=== PATIENT | male | born 1955 | race Caucasian/White ===

== ENCOUNTER 2023-10-05 14:13 | Outpatient (AMB) | payer OTHER, SELFPAY ==
--- NOTE | 2023-10-05 14:46 | A.OFFVIS_ITS ---
Intake Vital Signs 10/05/23 14:51 Height 5 ft 10 in Weight 220 lb BMI 31.6 BP 132/82 Blood Pressure Location Rt brachial Position Sitting Pulse 53 Pulse Source Pulse Oximeter Pulse Oximetry (%) 98 Oxygen Delivery Method Room Air Intake Visit Reasons: ENP-Insomnia/fragmented sleep patern Intake Note: Patient presents for insomnia and fragmented sleep pattern. Allergies No Known Allergies Allergy (Verified 10/05/23 14:53) Medication List - Last Reconciled 10/23/23 by NANCIE Tamez atorvastatin 40 mg PO BEDTIME diltiazem HCl ER mg PO fluoxetine 40 mg PO DAILY metoprolol tartrate 100 mg PO BID pantoprazole 40 mg PO DAILY rivaroxaban (Xarelto) 20 mg PO DAILY HPI HPI Comments History of Present Illness Details 68-yr-old male presents for [facility] patient visit for sleep consultation. Pt states that he has had narcolepsy s/s since childhood- had excessive daytime sleepiness, would miss meals. As he started college, he was started on methylphenidate. Over time, he was switched to [employer] w/ the Xyrem. He did stop the Xyrem d/t thought it was not doing much but at that time was working and more active. The [employer] was stopped working after some years, and he was started on Adderrall. This was stopped once he developed A-fib in 2018- w/ initial s/s of HR > 200. Since, he has had bothersome hypersomnia, which interferes with the daily activities he would like to be able to do. Pt reports has also has a h/o sleep apnea, hypersomnia, and narcolepsy. Per pt, he has had more than one positive MSLT. He does have a CPAP machine- set at 8cmH2O- has not used it in 2 yrs d/t needs new supplies- filters and tubing. Since 2020, pt reports he has been having hypnogenic hallucinations when he is falling asleep and waking up, which are similar to ones that he had as a child of 7-8 yrs old. He has recently woke up waving to someone in his dream or woke up calling his dog's name. Sometimes his right thumb will tremor. Neck can be stiff Denies hyposmia, gait changes, constipation. Current sleep cycle: In the evening, he watches TV, he tries to fall asleep around 1am, he wakes up between 4:30-7am, and then he walks his dog, and then lays back down on the sofa and falls asleep again w/ the TV on. If he has to run errands, he will go shopping in late am/afternoon, then will return home and go back to sleep. He does take 1 alcohol drink per day- would stop if he could resume Xyrem. He denies any cataplexy, drop attacks, sudden weakness w/ strong emotion. [facility] Medical History (Updated 10/23/23 @ 20:43 by NANCIE Tamez) Memory difficulties Surgical History (Updated 10/05/23 @ 14:54 by NATALEE Joseph) History of back surgery Family History (Updated 10/05/23 @ 14:55 by NATALEE Joseph) Father Hyperlipidemia Mother HTN (hypertension) Cancer, colon Social History (Updated 10/05/23 @ 14:55 by NATALEE Joseph) Alcohol intake: current Patient Tobacco Use Status: Never used Tobacco Review of Systems Const All systems reviewed & are unremarkable except as noted in HPI and below Physical Exam Vital Signs: Last Vital Signs Pulse 53 10/05/23 14:51 BP 132/82 10/05/23 14:51 Pulse Ox 98 10/05/23 14:51 Oxygen Delivery Method Room Air 10/05/23 14:51 BMI result Body Mass Index 31.6 Const General: no acute distress Orientation/consciousness: patient oriented x3 Resp Effort & Inspection: able to speak in complete sentences Neuro General: patient oriented x3 Psych Mental Status: mental status grossly normal Speech and movement: Clear speech present Attitude: cooperative Assessment & Plan Assessment & Plan (1) Narcolepsy: Code(s): G47.419 - Narcolepsy without cataplexy (2) Obstructive sleep apnea: Code(s): G47.33 - Obstructive sleep apnea (adult) (pediatric) (3) Hypersomnia: Code(s): G47.10 - Hypersomnia, unspecified Plan Resume CPAP 8 cmH2O. Will refer pt to a local respiratory home care company. Once pt has been on CPAP again x's 1 month, pt advised to undergo in-lab PSG w/ MSLT. Upon review, consider resuming sodium oxybate, however would avoid Xyrem d/t high sodium content, Xywav would be a more favorable option in setting of HLD, HTN, and a-fib dx. Will request any previous sleep studies from [facility]. Pt seen in c/w Dr Robyn Chaidez. Coding Level of Care Code New Pt Level 4 (10105) Diagnoses Narcolepsy G47.419 Obstructive sleep apnea G47.33 Hypersomnia G47.10
[2023-10-05 14:51] VITALS: BP 132/82; PULSE 53; O2SAT 98; BMI 31.6
== END 2023-10-05 15:53 | disposition home or self-care (01) ==
PROVIDERS: Visit Provider Nurse Practitioner Family
DX: G47.419 Narcolepsy without cataplexy (principal); G47.33 Obstructive sleep apnea (adult) (pediatric); G47.10 Hypersomnia, unspecified
CPT/HCPCS: 99204

== ENCOUNTER → 2023-10-05 14:13 | Outpatient (BNVA) | payer OTHER, SELFPAY | PROVIDERS: Visit Provider Nurse Practitioner Family | DX: G47.419 Narcolepsy without cataplexy (principal); G47.33 Obstructive sleep apnea (adult) (pediatric); G47.10 Hypersomnia, unspecified; Z99.89 Dependence on other enabling machines and devices | CPT/HCPCS: 99202 ==

== ENCOUNTER → 2023-12-08 20:00 | Outpatient (REF) | payer OTHER, SELFPAY | LOC: HO.SL 20:00 | PROVIDERS: Visit Provider Nurse Practitioner Family | DX: G47.33 Obstructive sleep apnea (adult) (pediatric) (principal); G47.419 Narcolepsy without cataplexy; G47.10 Hypersomnia, unspecified | CPT/HCPCS: 95805 ==

== ENCOUNTER 2024-03-08 13:50 | Outpatient (AMB) | payer OTHER, SELFPAY ==
--- NOTE | 2024-03-08 14:38 | A.OFFVIS_ITS ---
Vital Signs 03/08/24 14:40 Weight 230 lb 6 oz Intake Visit Reasons: Insomnia/fragmented sleep - Conf Intake Note: Patient presents for follow up. Allergies No Known Allergies Allergy (Verified 03/08/24 14:38) Medication List - Last Reconciled 03/08/24 by NANCIE Tamez atorvastatin 40 mg PO BEDTIME diltiazem HCl ER mg PO fluoxetine 40 mg PO DAILY losartan 25 mg PO DAILY metoprolol tartrate 100 mg PO BID pantoprazole 40 mg PO DAILY rivaroxaban (Xarelto) 20 mg PO DAILY HPI Comments Details: 68-yr-old male presents for f/u visit. Pt denies any significant interval medical changes. Pt underwent in-lab PSG/MSLT, however study showed AHI 6/hr w/ O2 miller 83%. His dog was present during his sleep study and was climbing on him, which may have accounted for sleep fragmentation seen in the study. Since starting PAP tx 3-4 weeks ago, he has been sleeping better through the night. Still needs to void ~3 times a night. He is still sleeping a lot during the day. He has been noticing hallucinations coming out of sleep- thinking it was raining or seeing something. This has been happening even with using his CPAP. [facility] Medical History (Updated 10/23/23 @ 20:43 by NANCIE Tamez) Memory difficulties Surgical History History of back surgery Family History Father Hyperlipidemia Mother HTN (hypertension) Cancer, colon Social History Alcohol intake: current Patient Tobacco Use Status: Never used Tobacco Physical Exam Const General: cooperative and no acute distress Orientation/consciousness: patient oriented x3 Resp Effort & Inspection: normal respiratory effort and able to speak in complete sentences Neuro General: patient oriented x3 Cognition (Neuro): normal cognition Psych Appearance: grossly normal Mental Status: mental status grossly normal Speech and movement: Normal speech and movement present Affect: normal affect Attitude: cooperative Assessment & Plan Assessment & Plan (1) Obstructive sleep apnea: Code(s): G47.33 - Obstructive sleep apnea (adult) (pediatric) Category: Medical (2) Hypersomnia: Code(s): G47.10 - Hypersomnia, unspecified Category: Medical Plan Continue CPAP 8 cmH2O nightly > 4 hrs, as pot is having clinical benefit, though hypersomnia persists. In-lab PSG w/ MSLT, as scheduled. Upon review, consider resuming sodium oxybate, however would avoid Xyrem d/t high sodium content, Xywav would be a more favorable option in setting of HLD, HTN, and a-fib dx. Coding Level of Care Code Est Pt Level 3 (46596) Diagnoses Obstructive sleep apnea G47.33 Hypersomnia G47.10
== END 2024-03-08 15:14 | disposition home or self-care (01) ==
PROVIDERS: Visit Provider Nurse Practitioner Family
DX: G47.33 Obstructive sleep apnea (adult) (pediatric) (principal); G47.10 Hypersomnia, unspecified
CPT/HCPCS: 99213

== ENCOUNTER → 2024-03-08 13:50 | Outpatient (BNVA) | payer OTHER, SELFPAY | PROVIDERS: Visit Provider Nurse Practitioner Family | DX: G47.33 Obstructive sleep apnea (adult) (pediatric) (principal); G47.10 Hypersomnia, unspecified | CPT/HCPCS: 99212 ==

== ENCOUNTER → 2024-03-15 19:30 | Outpatient (REF) | payer OTHER, SELFPAY | LOC: HO.SL 19:30 | PROVIDERS: PCP Internal Medicine; Visit Provider Nurse Practitioner Family | DX: G47.10 Hypersomnia, unspecified (principal); G47.33 Obstructive sleep apnea (adult) (pediatric); G47.419 Narcolepsy without cataplexy | CPT/HCPCS: 95810 ==

== ENCOUNTER → 2024-03-15 21:51 | Outpatient (BNV) | payer OTHER, SELFPAY | PROVIDERS: PCP Internal Medicine; Visit Provider Psychiatry & Neurology Neurology | DX: G47.33 Obstructive sleep apnea (adult) (pediatric) (principal) | CPT/HCPCS: 95810 ==

== ENCOUNTER 2024-03-16 15:56 | Outpatient (REF) | payer OTHER, SELFPAY ==
[2024-03-16 16:50] LABS: Amphetamine Screen Urine Not Detected (Not Detect); Barbiturates, Urine Not Detected (Not Detect); Benzodiazepines Screen Urine Not Detected (Not Detect); Buprenorphine Scr Not Detected (Not Detect); Cannabinoid Screen Urine Not Detected (Not Detect); Cocaine Screen Urine Not Detected (Not Detect); Fentanyl, urine Not Detected (Not Detect); Methadone Screen, Urine Not Detected (Not Detect); Opiate Screen Urine Not Detected (Not Detect); Oxycodone Screen Urine Not Detected (Not Detect); Phencyclidine Screen Urine Not Detected (Not Detect)
== END 2024-03-16 15:57 | disposition home or self-care (01) ==
LOC: HO.LNP 15:56
PROVIDERS: Visit Provider Nurse Practitioner Family
DX: G47.10 Hypersomnia, unspecified (principal); R40.0 Somnolence
CPT/HCPCS: 80307

== ENCOUNTER 2024-05-30 13:27 | Outpatient (AMB) | payer OTHER, SELFPAY ==
--- NOTE | 2024-05-30 14:20 | A.OFFVIS_ITS ---
Vital Signs 05/30/24 14:23 Height 5 ft 10 in Weight 225 lb BMI 32.3 BP 152/90 H Blood Pressure Location Lt brachial Position Sitting Pulse 57 Pulse Source Pulse Oximeter Pulse Oximetry (%) 94 Oxygen Delivery Method Room Air Intake Visit Reasons: f/u to discuss results per [facility] needed sooner appt Multiple Resaw Operator Required: No Accompanied by: Self / Same As Patient Allergies No Known Allergies Allergy (Verified 05/30/24 14:21) Do you need a note to return to daycare/school/sports/work: No HPI Comments Details: 68-yr-old male presents for f/u visit. Pt denies any significant interval medical changes. Pt underwent in-lab PSG/MSLT, however baseline sleep study was a PAP titration study therefore MSLT results were inconclusive. Sleep apnea was controlled on CPAP 13 cmH2O, however residual SpO2 was 88%, PLMS 79/hr w/ PLMS 7.8/hr. Reviewed that recent sleep studies have not shown significant REM sleep. He does have periodic limb movements of sleep. Pt does endorse fragmented sleep, hypersomnia, restless sleep, nocturia, and irregular sleep schedule. Today, pt notes that Xyrem was never very helpful for hypersomnia- the stimulant was more effective. He has been noticing hallucinations coming out of sleep- thinking it was raining or seeing something. This has been happening even with using his CPAP. This did not occur when he was younger. [facility], [facility] Medical History (Updated 05/30/24 @ 15:04 by NANCIE Tamez) Anemia Memory difficulties Surgical History History of back surgery Family History Father Hyperlipidemia Mother HTN (hypertension) Cancer, colon Social History Alcohol intake: current Patient Tobacco Use Status: Never used Tobacco Physical Exam Vital Signs: Last Vital Signs Pulse 57 05/30/24 14:23 BP 152/90 H 05/30/24 14:23 Pulse Ox 94 05/30/24 14:23 Oxygen Delivery Method Room Air 05/30/24 14:23 BMI result Body Mass Index 32.3 Const General: cooperative and no acute distress Orientation/consciousness: patient oriented x3 Resp Effort & Inspection: normal respiratory effort and able to speak in complete sentences Neuro General: patient oriented x3 Cognition (Neuro): normal cognition Psych Appearance: grossly normal Mental Status: mental status grossly normal Speech and movement: Normal speech and movement present Affect: normal affect Attitude: cooperative Assessment & Plan Assessment & Plan (1) Obstructive sleep apnea: Code(s): G47.33 - Obstructive sleep apnea (adult) (pediatric) Category: Medical (2) Hypersomnia: Code(s): G47.10 - Hypersomnia, unspecified Category: Medical (3) Periodic limb movements of sleep: Code(s): G47.61 - Periodic limb movement disorder Category: Medical Plan Discussed that though MSLT not completed, on review of recent sleep study and pt's updated history, I suspect that pt's hypersomnia may have a multi-factorial etiology other than narcolepsy type II (he denies cataplexy). Thus, will check labs for common etiologies of PLMS. Optimize PAP tx settings. Continue Will adjust CPAP settings from CPAP 8 to 14 cmH2O nightly > 4 hrs. Future considerations- trial of gabaoentin. Orders: Orders Ferritin 05/30/24 D64.9 - Anemia, unspecified, E66.9 - Obesity, unspecified, E78.5 - Hyperlipidemia, unspecified, G47.10 - Hypersomnia, unspecified, G47.61 - Periodic limb movement disorder, I10 - Essential (primary) hypertension Methylmalonic Acid 05/30/24 D64.9 - Anemia, unspecified, E66.9 - Obesity, unspecified, E78.5 - Hyperlipidemia, unspecified, G47.10 - Hypersomnia, unspecified, G47.61 - Periodic limb movement disorder, I10 - Essential (primary) hypertension Complete Blood Count Auto Diff 05/30/24 D64.9 - Anemia, unspecified, E66.9 - Obesity, unspecified, E78.5 - Hyperlipidemia, unspecified, G47.10 - Hypersomnia, unspecified, G47.61 - Periodic limb movement disorder, I10 - Essential (primary) hypertension Vitamin D 25-OH (D2 and D3) 05/30/24 D64.9 - Anemia, unspecified, E66.9 - Obesity, unspecified, E78.5 - Hyperlipidemia, unspecified, G47.10 - Hypersomnia, unspecified, G47.61 - Periodic limb movement disorder, I10 - Essential (primary) hypertension Folate 05/30/24 D64.9 - Anemia, unspecified Hemoglobin A1c 05/30/24 D64.9 - Anemia, unspecified, E66.9 - Obesity, unspecified, E78.5 - Hyperlipidemia, unspecified, G47.10 - Hypersomnia, unspecified, G47.61 - Periodic limb movement disorder, I10 - Essential (primary) hypertension Homocysteine 05/30/24 D64.9 - Anemia, unspecified, E66.9 - Obesity, unspecifi ed, E78.5 - Hyperlipidemia, unspecified, G47.10 - Hypersomnia, unspecified, G47.61 - Periodic limb movement disorder, I10 - Essential (primary) hypertension Vitamin B12 and Folate 05/30/24 D64.9 - Anemia, unspecified, E66.9 - Obesity, unspecified, E78.5 - Hyperlipidemia, unspecified, G47.10 - Hypersomnia, unspecified, G47.61 - Periodic limb movement disorder, I10 - Essential (primary) hypertension TSH reflex Free T4 05/30/24 D64.9 - Anemia, unspecified, E66.9 - Obesity, unspecified, E78.5 - Hyperlipidemia, unspecified, G47.10 - Hypersomnia, unspecified, G47.61 - Periodic limb movement disorder, I10 - Essential (primary) hypertension Comprehensive Met. Panel 05/30/24 D64.9 - Anemia, unspecified, E66.9 - Obesity, unspecified, E78.5 - Hyperlipidemia, unspecified, G47.10 - Hypersomnia, unspecified, G47.61 - Periodic limb movement disorder, I10 - Essential (primary) hypertension Vitamin B6 05/30/24 D64.9 - Anemia, unspecified, E66.9 - Obesity, unspecified, E78.5 - Hyperlipidemia, unspecified, G47.10 - Hypersomnia, unspecified, G47.61 - Periodic limb movement disorder, I10 - Essential (primary) hypertension Vitamin B1 05/30/24 D64.9 - Anemia, unspecified, E66.9 - Obesity, unspecified, E78.5 - Hyperlipidemia, unspecified, G47.10 - Hypersomnia, unspecified, G47.61 - Periodic limb movement disorder, I10 - Essential (primary) hypertension Magnesium 05/30/24 D64.9 - Anemia, unspecified, E66.9 - Obesity, unspecified, E78.5 - Hyperlipidemia, unspecified, G47.10 - Hypersomnia, unspecified, G47.61 - Periodic limb movement disorder, I10 - Essential (primary) hypertension Coding Level of Care Code Est Pt Level 4 (46243) Diagnoses Obstructive sleep apnea G47.33 Hypersomnia G47.10 Periodic limb movements of sleep G47.61
[2024-05-30 14:23] VITALS: BP 152/90; PULSE 57; O2SAT 94; BMI 32.3
== END 2024-05-30 15:08 | disposition home or self-care (01) ==
PROVIDERS: PCP Internal Medicine; Visit Provider Nurse Practitioner Family
DX: G47.33 Obstructive sleep apnea (adult) (pediatric) (principal); G47.10 Hypersomnia, unspecified; G47.61 Periodic limb movement disorder
CPT/HCPCS: 99214

== ENCOUNTER → 2024-05-30 13:27 | Outpatient (BNVA) | payer OTHER, SELFPAY | PROVIDERS: PCP Internal Medicine; Visit Provider Nurse Practitioner Family | DX: G47.33 Obstructive sleep apnea (adult) (pediatric) (principal); G47.61 Periodic limb movement disorder; G47.10 Hypersomnia, unspecified; R35.1 Nocturia | CPT/HCPCS: 99212 ==